=== PATIENT | female | born 1985 | race Caucasian/White ===

== ENCOUNTER 2024-09-25 11:08 | Emergency (ER) | payer MEDICAID ==
[~2024-09-25] VITALS: Ht 177.8 cm; Wt 70.2 kg
[2024-09-25 11:17] VITALS: BP 120/81; PULSE 78; RESP 18; TEMP 97.8; O2SAT 98
--- NOTE | 2024-09-25 11:25 | Physician Documentation ---
History of Present Illness ~ General Chief Complaint: Sore Throat Stated Complaint: THROAT ABSCESS Time Seen by MD: 11:27 OK to notify your PCP?: Yes Source: patient Mode of Arrival: POV Exam Limitations: no limitations History of Present Illness Initial Comments This is a 39-year-old female who comes in stating that she has been feeling generally weak over the past week or so. The patient is from out of the area and she is here caring for a mother who was recently in a rehab facility. The patient states that is she has felt more fatigued than usual and this in his shoe and general. She denies any significant past medical history. She also states she feels like she has lymph nodes swollen in her neck. She denies cold or flu symptoms. She denies fever or chills. She denies chest pain or shortness of breath. She denies change in bladder or bowel habits Medication Reconciliation Allergies: Coded Allergies: No Known Allergies (Unverified , 09/25/24) Physical Exam Physical Exam Vital Signs: Temperature: 97.8, Source: Temporal, Heart Rate: 78, Respiratory Rate: 18, BP: 120/81, Pulse Oximetry: 98, Weight: 70.150 Oxygen Flow Rate: 0 Pulse Oximetry Reflects: adequate oxygenation General Appearance: alert, WD/WN, no apparent distress Head: normal inspection Face: normal inspection Pupils/EOM/Fundus: PERRLA EENT Bilateral EACs and TMs are within normal limits. No cervical lymphadenopathy. Oropharynx shows no erythema edema or exudates. Mucous membranes are moist. Neck: non-tender, full range of motion, supple, normal inspection, trachea midline Respiratory No accessory muscle use or retractions. Lungs are clear to auscultation all gagnon. Cardiovascular No rubs, gallops or murmurs. No peripheral edema or cyanosis/clubbing of the extremities for Back: no CVA tenderness Extremities: normal range of motion Psychiatric: normal mood/affect Skin: normal color, warm/dry Progress Results/Orders Results/Orders Orders - TYREE ALVARADO Urinalysis, Cult If Indicated (09/25/24 11:19) Completed Orders - TYERE ALVARADO Cbc/Diff (09/25/24 11:19) BMP (09/25/24 11:19) Hcg Serum Ql (09/25/24 11:19) TSH (09/25/24 11:19) Free T4 (09/25/24 11:19) Vital Signs 09/25/24 11:17 Temp 97.8 Pulse 78 Resp 18 B/P (MAP) 120/81 Pulse Ox 98 O2 Flow Rate 0 Laboratory Tests Test 09/25/24 12:22 White Blood Count 5.8 Red Blood Count 4.27 Hemoglobin 13.0 Hematocrit 38.0 Mean Corpuscular Volume 89.1 Mean Corpuscular Hemoglobin 30.6 Mean Corpuscular Hemoglobin Concent 34.3 Red Cell Distribution Width 12.1 Platelet Count 171 Mean Platelet Volume 9.1 Neutrophils (%) (Auto) 72.3 Lymphocytes (%) (Auto) 20.4 L Monocytes (%) (Auto) 6.2 Eosinophils (%) (Auto) 0.8 Basophils (%) (Auto) 0.3 Neutrophils # (Auto) 4.2 Lymphocytes # (Auto) 1.2 Monocytes # (Auto) 0.4 Eosinophils # (Auto) 0.0 Basophils # (Auto) 0.0 CBC Comment Sodium Level 140 Potassium Level 3.8 Chloride Level 105 Carbon Dioxide Level 25.3 Anion Gap 10 Blood Urea Nitrogen 17 Creatinine 0.85 Estimated GFR/1.73 m2 74 BUN/Creatinine Ratio 20.0 Glucose Level 96 Calcium Level 8.8 Albumin 3.8 Thyroid Stimulating Hormone (TSH) 0.98 Free Thyroxine 1.04 Human Chorionic Gonadotropin, Qual Negative Chemistry Comments Medical Decision Making Findings Clinically the patient is well-appearing in no apparent distress. Her physical examination was very benign. There was nothing to indicate clinically an infectious process and the patient's CBC, CMP, TSH and free T4 all negative. The patient states she is going to give a urine sample and states she has not no urinary symptoms. The patient has a primary care physician out of the area in his left ear carrying for a family member who is recently been in rehab. Told the patient this point there is nothing to indicate any acute underlying issues however if she should follow up with the PCP she continues to have these problems for further testing as the patient was requesting be tested for v itamin-D another tests has not typically not run from the ER. Differential Diagnosis Anemia. Hypothyroid. Viral syndrome. UTI. Well adult exam. Departure Disposition: HOME / SELF CARE / HOMELESS Impression: Primary Impression: General weakness Condition: Stable Discharge Instructions: Weakness Additional Instructions: Here herself well hydrated you can try taking a multivitamin [id number]. He had a well-balanced diet. Follow up with the primary care physician for recheck and so the [place] return to the ER for any worsening or concerning symptoms Referrals: NO PRIMARY CARE PROVIDER (PCP) Signature Scribe Signature: No scribe Attestation: The note accurately reflects work and decisions made by me.Tyree THAPA 09/25/24 12:17 TYREE ALVARADO Sep 25, 2024 11:25
[2024-09-25 12:41] LABS: MEAN PLATELET VOLUME 9.1 FL (7.4-10.4); RED CELL DISTRIBUTION WIDTH 12.1 % (11.5-14.5)
[2024-09-25 12:53] LABS: HCG SERUM QL NEGATIVE
[2024-09-25 13:08] LABS: CREATININE 0.85 MG/DL (0.40-0.90); TOTAL CARBON DIOXIDE 25.3 MMOL/L (24-32); eCRCL 96 ML/MIN; eGFR 74 ML/MIN
== END 2024-09-25 14:23 | disposition home or self-care (01) ==
LOC: ER 11:09
DX: R53.1 Weakness (principal)
CPT/HCPCS: 36415; 80048; 84439; 84443; 84703; 85025; 99283

== ENCOUNTER 2024-10-06 19:01 | Emergency (ER) | payer MEDICAID ==
[~2024-10-06] VITALS: Ht 180.3 cm; Wt 89.7 kg
--- NOTE | 2024-10-06 19:20 | ELECTROCARDIOGRAPH REPORT ---
[facility] Test Date: 2024-10-06 Test Time: 19:06:45 Pat Name: WAYLON HOOVER Department: EMERGENCY ROOM Patient ID: [id number] Room: Gender: F Cop: : 1985 Requested By: KARY URENA Order Number: [id number] Reading MD: Dr. Mark Quijano Measurements Intervals [place] Rate: 78 P: 63 CO: 137 QRS: 50 QRSD: 99 T: 32 QT: 372 QTc: 424 Interpretive Statements Atrial-paced complexes Electronically Signed On 10-09-2024 19:16:[address] Mark Quijano Please click the below link to view image of tracing.
[2024-10-06 20:09] LABS: MEAN PLATELET VOLUME 8.9 FL (7.4-10.4); RED CELL DISTRIBUTION WIDTH 12.2 % (11.5-14.5)
[2024-10-06 20:24] LABS: CREATININE 0.90 MG/DL (0.40-0.90); TOTAL CARBON DIOXIDE 28.0 MMOL/L (24-32); eCRCL 94 ML/MIN; eGFR 70 ML/MIN
--- NOTE | 2024-10-06 20:53 | Physician Documentation ---
History of Present Illness ~ Chief Complaint: Nausea Stated Complaint: POSSIBLE DRUG EXPOSURE Time Seen by MD: 19:21 Mode of Arrival: POV, EMS HPI 39 year old female with nausea and palpitations. She says this started after she walked into a bathroom with a funny smell that she suspected was from a roommate using inhaled drugs. She believes she may have been exposed to some inhaled drug like fentanyl or methamphetamine and is concerned. Feels better now. Denies chest pain, shortness of breath, diarrhea, abdominal pain. Medication Reconciliation Allergies: Coded Allergies: No Known Allergies (Unverified , 09/25/24) Review of Systems All Other Systems at this time: Reviewed and Negative Physical Exam Vital Signs: RN Vital Signs have been reviewed: Yes, Temperature: 98.2, Source: Oral, Heart Rate: 78, Respiratory Rate: 18, BP: 130/85, Pulse Oximetry: 98, Weight: 89.700 Physical Exam HEENT: PERRL, moist oral mucosa, EOMI Pulmonary: No respiratory distress Cardiac: RRR, no murmur, rub or gallop GI: nondistended, soft, nontender, no guarding, no rebound MSK: no deformity Skin: w/d/i, no rash Neuro: alert, nonfocal Psych: normal affect Progress Results/Orders Results/Orders Orders - KARY URENA MD Chest,Single View (10/06/24 19:32) Completed Orders - KARY URENA MD Electrocardiogram (10/06/24 19:19) Cbc/Diff (10/06/24 19:24) CMP (10/06/24 19:24) Chest,Single View (10/06/24 19:32) Vital Signs 10/06/24 10/06/24 19:04 19:12 Temp 98.2 98.2 Pulse 78 78 Resp 18 18 B/P (MAP) 130/85 130/85 (100) Pulse Ox 98 98 Laboratory Tests Test 10/06/24 19:46 White Blood Count 8.4 Red Blood Count 4.29 Hemoglobin 13.2 Hematocrit 38.5 Mean Corpuscular Volume 89.9 Mean Corpuscular Hemoglobin 30.9 Mean Corpuscular Hemoglobin Concent 34.4 Red Cell Distribution Width 12.2 Platelet Count 196 Mean Platelet Volume 8.9 Neutrophils (%) (Auto) 76.2 H Lymphocytes (%) (Auto) 17.0 L Monocytes (%) (Auto) 6.0 Eosinophils (%) (Auto) 0.4 Basophils (%) (Auto) 0.4 Neutrophils # (Auto) 6.4 Lymphocytes # (Auto) 1.4 Monocytes # (Auto) 0.5 Eosinophils # (Auto) 0.0 Basophils # (Auto) 0.0 CBC Comment Sodium Level 138 Potassium Level 3.4 L Chloride Level 103 Carbon Dioxide Level 28.0 Anion Gap 7 L Blood Urea Nitrogen 15 Creatinine 0.90 Estimated GFR/1.73 m2 70 BUN/Creatinine Ratio 16.7 Glucose Level 99 Calcium Level 9.0 Total Bilirubin 0.4 Aspartate Amino Transf (AST/SGOT) 19 Alanine Aminotransferase (ALT/SGPT) 30 Alkaline Phosphatase 69 Total Protein 7.1 Albumin 3.8 Globulin 3.3 Albumin/Globulin Ratio 1.2 Chemistry Comments Medical Decision Making Findings 39 year old female with vague symptoms after minor mechanism drug exposure. Observed, workup unremarkable, counseled, reassured, discharged. Additional Comments Ddx = anxiety, drug intoxication, gastroenteritis, heat related illness, UTI, electrolyte disturbance, anemia Departure Disposition: 01 HOME / SELF CARE / HOMELESS Impression: Primary Impression: Nausea Condition: Stable Discharge Instructions: Nausea and Vomiting, Adult, [id number] Referrals: NO PRIMARY CARE PROVIDER (PCP) Education Educated: Patient Educated regarding: diagnosis, treatment, prognosis, need for follow up Signature Scribe Signature: . Attestation: . KARY URENA MD Oct 06, 2024 20:53
--- NOTE | 2024-10-06 21:09 | RADIOLOGY REPORT ---
EXAMINATION: AP portable chest radiograph CLINICAL HISTORY: nausea COMPARISON: None FINDINGS AND IMPRESSION: Innumerable small nodular densities project over the left lower lung field. These are reported to be from overlying clothing. Otherwise no dominant consolidations. The costophrenic angles appear clear. No sizable pleural effus ions or pneumothorax identified. The cardiomediastinal silhouette appears within normal limits given technique.
[2024-10-06 21:22] VITALS: BP 130/70; PULSE 87; RESP 16; TEMP 98.2; O2SAT 100
== END 2024-10-06 21:38 | disposition home or self-care (01) ==
LOC: ER 19:01
DX: R11.0 Nausea (principal); R00.2 Palpitations
CPT/HCPCS: 36415; 71045; 80053; 85025; 93005; 99285